=== PATIENT | male | born 1935 | race Caucasian/White ===

== ENCOUNTER 2017-05-30 10:46 | Inpatient (IN) ==
--- NOTE | 2017-05-30 11:10 | Emergency Department Report ---
General Adult HPI - General Chief complaint: Medical Clearance Stated complaint: gen eval Time Seen by Provider: 05/30/17 10:48 Source: patient, family Mode of arrival: ambulatory Limitations: other (Dementia) - History of Present Illness HPI narrative: 74-year-old male with a history of Alzheimer's dementia has had a gradual increase in the decline of his cognitive abilities over the past 6 months. Patient appears to be paranoid at times. He goes outside and will easily become lost. He becomes verbally loud at night and aggressive. Patient does drink approximately a couple of beers on a daily basis. Patient has destroyed the screen door in a fit of anger. Patient has been withdrawing sums of money from the bank. He has been having more difficulty with daily activities over time. He denies any pain or discomfort. No other complaints or associated symptoms. Patient and family present to the emergency department for medical clearance for the patient to go to [facility]. Patient has been noncompliant with his medications for hypertension, dementia, hyperlipidemia, and gout for the past approximately 1-2 years. No other complaints or associated symptoms at this time. - Related Data Home Medications Medication Instructions Recorded Confirmed Allopurinol [Zyloprim] 300 mg PO DAILY 05/30/17 05/30/17 Amlodipine [Norvasc] 5 mg PO DAILY 05/30/17 05/30/17 Atorvastatin Calcium 20 mg PO DAILY 05/30/17 05/30/17 Divalproex [Depakote] 250 mg PO DAILY 05/30/17 05/30/17 Donepezil [Aricept] 10 mg PO DAILY 05/30/17 05/30/17 Memantine [Namenda] 5 mg PO QAM 05/30/17 05/30/17 Oxycodone/Acetaminophen 5/325 1 tab PO TID PRN 05/30/17 05/30/17 [Percocet 5/325] Allergies Allergy/AdvReac Type Severity Reaction Status Date / Time No Known Allergies Allergy Verified 05/30/17 10:55 Review of Systems Limitations: ROS unobtainable due to patient's medical condition [facility] Patient Stated Medical History Transient Ischemic Attacks ( Yes TIA) Hypertension Yes Other Musculoskeletal Yes: FX RT HAND Surgical History: Denied by patient. Family History: Reviewed and Noncontributory. - Social History Smoking status: Former smoker Substance use type: does not use Alcohol intake frequency: 0-2 drinks per day Physical Exam - Limitations Limitations: other - General General appearance: alert, in no apparent distress - Normal Exams: Head:: Normocephalic without trauma Eyes:: Pupils are PERRLA w/ EOMI, No scleral icterus, irritation, or foreign bodies noted ENMT:: No facial trauma, nasal exudates, pharyngeal erythema, or exudates are noted Dental: No fractured, loose, or missing teeth noted Neck:: Full range of motion, without adenopathy, JVD, bruits or thyromegaly Chest/Respirations:: Clear all alfred, with good airflow, and symmetry bilaterally Cardiovascular:: Regular rate and rhythm, without murmur or gallop, Pulses 2+ all extremities, capillary refill, <2 seconds all extremities Abdomen:: Bowel sounds positive, soft, non-tender, non-distended, no hepatosplenomegaly, masses or bruits noted Lymphatic:: No lymphadenopathy, or lymphedema noted Musculoskeletal:: No tenderness, or deformity noted, good range of motion, all extremities Integumentary:: No rashes, hives, or bruising noted, hair and nails, without abnormality Neurological:: Patient is alert (Alert and oriented x 1-2 at baseline. No focal deficit.) Course Vital Signs Temperature 97.6 F 05/30/17 10:55 Pulse Rate 64 05/30/17 10:55 Respiratory Rate 16 05/30/17 10:55 Blood Pressure 190/84 H 05/30/17 10:55 Pulse Oximetry 98 05/30/17 10:55 Temperature 97.6 F 05/30/17 10:55 Pulse Rate 64 05/30/17 12:00 Respiratory Rate 16 05/30/17 12:00 Blood Pressure 185/87 H 05/30/17 12:00 Pulse Oximetry 97 05/30/17 12:00 Medical Decision Making - [facility] Narrative Medical decision making narrative: Labs / imaging were reviewed in detail with the patient and family and questions are answered. Patient is given thiamine 100 mg by mouth 1 in the emergency Department. Patient is medically clear for further evaluation and treatment in a psychiatric facility. Patient is accepted to [facility] by Dr. Briones who is in agreement with the current plan of management. No further orders from accepting physician who is in agreement with the current plan of management. Patient and family are in agreement with the current plan of management. Patient to [facility] at this time for further evaluation and treatment. - Differential Diagnosis dementia, metabolic disorder, UTI, alcohol abuse - Lab Data Result diagrams: 05/30/17 11:35 05/30/17 11:35 Lab Results 05/30/17 05/30/17 05/30/17 Range/Units 11:25 11:35 11:35 WBC 4.5 (4.5-11.0) T/MM3 RBC 4.81 (4.50-5.90) M/MM3 Hgb 15.0 (13.5-17.5) GM/DL Hct 44.8 (41-53) % MCV 93.1 (80-100) UM3 MCH 31.2 (26-34) UUG MCHC 33.5 (31-37) GM/DL RDW Std Deviation 44.1 (36.9-50.2) FL Plt Count 156 (130-400) T/MM3 MPV 9.9 (9.4-12.4) UM3 Immature Gran % (Auto) 0.2 (0.0-0.5) % Neut % (Auto) 65.4 (33-66) % Lymph % (Auto) 24.3 (23-45) % Reynolds % (Auto) 8.4 (0-9.0) % Eos % (Auto) 1.5 (0-4) % Baso % (Auto) 0.2 (0-2) % Neut # (Auto) 3.0 (1.8-7.7) T/MM3 Lymph # (Auto) 1.1 (1-4.8) T/MM3 Reynolds # (Auto) 0.4 (0-0.8) T/MM3 Eos # (Auto) 0.1 (0-0.5) T/MM3 Baso # (Auto) 0.0 (0-0.2) T/MM3 Abs Immat Gran (auto) 0.01 (0.00-0.03) T/MM3 Turbidity < 20 (0-20) Sodium 141 (134-144) MEQ/L Potassium 4.1 (3.6-5) MEQ/L Chloride 103 (98-107) MEQ/L Carbon Dioxide 28 (22-30) MEQ/L Anion Gap 10 (5-15) MEQ/L BUN 14.0 (9-20) MG/DL Creatinine 1.3 (0.8-1.5) mg/dL GFR Calculation 53 BUN/Creatinine Ratio 11 (6-26) RATIO Glucose 97 (75-110) MG/DL Calculated Osmolality 272 (261-280) MOSM/KG Calcium 9.0 (8.4-10.2) MG/DL Total Bilirubin 0.80 (0.20-1.30) MG/DL Icterus Index < 2 (0-7) AST 22 (17-59) U/L ALT 9 (1-50) U/L Alkaline Phosphatase 88 (38-126) U/L Troponin I 0.035 (0-0.12) ng/ml Total Protein 7.3 (6.3-8.2) g/dL Albumin 3.8 (3.5-5.0) g/dL Globulin 3.5 (2.4-3.6) G/DL Albumin/Globulin Ratio 1.1 (1.1-2.2) RATIO Specimen Hemolysis < 15 (0-25) Ur Collection Type Urine, void-cc/notcc Urine Color Yellow (YELLOW) Urine Clarity Clear Urine pH 6.0 (5.0-8.0) Ur Specific Wolsey 1.010 L (1.015-1.025) Urine Protein Negative (NEGATIVE) Urine Glucose (UA) Negative (NEGATIVE) Urine Ketones Negative (NEGATIVE) Urine Occult Blood Trace-intact (NEGATIVE) Urine Nitrate Negative (NEGATIVE) Urine Bilirubin Negative (NEGATIVE) Urine Urobilinogen 0.2 (NORMAL) EU/DL Ur Leukocyte Esterase Negative (NEGATIVE) Urinalysis Comment Microscopic not ind. - Radiology Data CXR - No acute processes. - EKG Data EKG #1 EKG results narrative: Sinus rhythm. 66 bpm. No STEMI. Disposition Clinical Impression: Dementia Qualifiers: Dementia type: Alzheimer's disease Alzheimer's disease onset: unspecified onset Dementia behavioral disturbance: with behavioral disturbance Qualified Code(s): G30.9 - Alzheimer's disease, unspecified; F02.81 - Dementia in other diseases classified elsewhere with behavioral disturbance Disposition: 64 To [facility] Condition: Improved Time of Disposition: 12:20 (Admit. Dr. Briones. ) - Seen By: physician
--- NOTE | 2017-05-30 12:15 | XRay Report ---
Indication: med. clearance PROCEDURE: XR chest 1V: Encounter: Initial Comparison: None FINDINGS: The lungs are clear. There is no abnormal airspace opacity, pleural effusion or pneumothorax identified. The heart size is at the upper limits of normal. The pulmonary vasculature and mediastinum are within normal limits. No significant skeletal abnormality is seen. IMPRESSION: No acute cardiopulmonary abnormality. .
[2017-05-30] MEDS ORDERED: OXAZEPAM 30 MG CAPSULE PO PRN (12:55)
[2017-05-30] MEDS ORDERED: LORazepam 0.5 MG TABLET PO PRN (12:55)
[2017-05-30] MEDS ORDERED: Oxycodone/Acetaminophen 5/325 1 TAB PO PRN (12:55)
[2017-05-30] MEDS ORDERED: HALOPERIDOL 0.5 MG TABLET PO PRN (12:55)
[2017-05-30 13:06] VITALS: BMI 29.2
[2017-05-30] MEDS: HALOPERIDOL 1 MG/0.5 ML ORAL LIQUID PO PRN ×2 (13:30→20:02)
[2017-05-30] MEDS ORDERED: RISPERIDONE 1 MG/ML PO ONE (14:11)
--- NOTE | 2017-05-30 14:26 | History & Physical Report ---
History of Present Illness Date: 05/30/17 Chief complaint: increasing confusion, behaviors HPI: Patient is an 82 yo male who is admitted [facility] due to increasing behaviors and confusion. He lives at home with his who has MS. His son, Bill (lives in [place]), has brought him here and he gives most of patient 's history. Patient is angry that he is here. Feels he is being held prisoner. Son reports that pt drinks approx 6 beers a day. Last drink was yesterday, but unsure what time. Has probably been drinking this much for a couple of years. 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 Sxs of Alzheimers have been evident for the past few years. It is clear to family that he can't go back home after [facility] admission. Patient was seen in his room while his son was present. He mentions that he is upset that he cannot leave here and, at the present time, doesn't feel it is necessary to be examined for his stay here. 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 1 family member w/ early onset age 40's. No FH of DM or CV disease. 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 Ley ([place], [place]) Patient has 2 children - son and daughter Medications Home Medications Medication Instructions Recorded Confirmed Type Allopurinol [Zyloprim] 300 mg PO DAILY 05/30/17 05/30/17 History Amlodipine [Norvasc] 5 mg PO DAILY 05/30/17 05/30/17 History Atorvastatin Calcium 20 mg PO DAILY 05/30/17 05/30/17 History Divalproex [Depakote] 250 mg PO DAILY 05/30/17 05/30/17 History Donepezil [Aricept] 10 mg PO DAILY 05/30/17 05/30/17 History Memantine [Namenda] 5 mg PO QAM 05/30/17 05/30/17 History Oxycodone/Acetaminophen 5/325 1 tab PO TID PRN 05/30/17 05/30/17 History [Percocet 5/325] Allergies Allergy/AdvReac Type Severity Reaction Status Date / Time No Known Allergies Allergy Verified 05/30/17 10:55 Exam Vital Signs: Temperature 97.6 F 05/30/17 10:55 Pulse Rate 64 05/30/17 12:00 Respiratory Rate 16 05/30/17 12:00 Blood Pressure 185/87 H 05/30/17 12:00 Pulse Oximetry 97 05/30/17 12:00 Height/Weight/BMI: Height 1.73 m Weight 87.3 kg Body Mass Index 29.2 - Constitutional Present: no acute distress, well nourished, well developed - Routine HEENT Exam Head: Present: normocephalic, atraumatic Eye: Absent: conjunctival icterus, conjunctivae pink, periorbital ecchymosis ENT: Present: external ear normal - Routine Neck Exam Absent: swelling - Routine Respiratory Exam Absent: accessory muscle use, dyspnea, respiratory distress - Routine Extremities Exam Absent: cyanosis, pallor - Routine Skin Exam Present: intact. Absent: pallor - Routine Neurological Exam Present: alert, moving all extremities, normal speech. Absent: facial asymmetry , tremors - Routine Psychiatric Exam Present: agitated (voices being upset with being here) Results - Labs CBC & Chem 7: 05/30/17 11:35 05/30/17 11:35 - Imaging and Cardiology CT scan - head Additional comments: 05/01/17 [facility] 1. Focal area of decreased attenuation in L temporal lobe anteriorly. 2. Atrophy and moderately severe chronic microvascular ischemic disease. 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 Birones, and to provide safe environment. Will need to watch for etoh w/drawal. Thiamine, folate, MVI, Serax and ativan have all been ordered. Labs from ER screen reviewed and are normal. B12, folate, TSH, lipids and A1C pending. Care to return to Dr. Ley on dismissal. Thank you for the consult. - Physician Narrative Physician: Riut Moctezuma MD Narrative: Date: 05/30/17 Time: 1944 I have independently evaluated and examined this patient. 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 We discussed and formulated the assessment and plan as above with additions as below: Mr. Mancera was very talkative when seen this evening; he repetitively told me about being born in [place] and subsequently moving to [place], [place]. 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 He denied any medical concerns other than stiffness and digits of his right hand which he attributes to recent fractures after a fall several weeks or months ago. He otherwise hoped I could clarify when his right would be here and how it was getting home. 120/65 NAD, pleasantly confused, very talkative EOMI, upper eyelid slightly droopy bilaterally, conjunctiva slightly injected, sclera anicteric, conjugate gaze, oropharynx clear, neck supple Respirations nonlabored, breath sounds clear anteriorly, good airflow Regular rhythm, heart tones cannot be appreciated over persistent speech Abdomen obese, soft, nontender Extremities +2 pitting edema to the mid thigh MAEW, normal motor tone, no tremors, assistant controller 4/5-incomplete flexion right index/ ring digits. Patient is able to raise each leg off the floor and hold it up against gentle resistance. No drift of the upper extremities. Sensation intact to light touch 4 extremities. Mild soft tissue swelling in the PIP/DIPs of the right index and ring fingers. Patient ambulates slowly with slightly forward leaning posture but was stable ambulating. Laboratory data reviewed CBC, compressive metabolic panel, TSH, and UA all unremarkable Chest x-ray reviewed by myself-lung alfred clear, NAD EKG also reviewed by myself-sinus rhythm, LAD, diffuse T-wave flattening, borderline low voltage-primarily in the limb leads, slow R-wave progression Medically the patient appears to be stable at this time, thank for allowing us to participate in his care. Home medications resumed for hypertension and hyperlipidemia. Will monitor course with you. Hospital Course Summary Disclaimer: The visit summary below is not to be considered part of the above Progress Note.
[2017-05-30] MEDS: LORazepam INTENSOL 1mg/0.5ml ORAL LIQUID PO PRN ×2 (16:40→21:41)
[2017-05-31] MEDS: HALOPERIDOL 5 MG/ML INJECTION IM PRN ×2 (05:45→23:35)
[2017-05-31] MEDS: LORazepam INTENSOL 1mg/0.5ml ORAL LIQUID PO PRN ×2 (08:00→17:00)
[2017-05-31] MEDS: DIVALPROEX 250 MG TABLET PO SCH (11:52)
[2017-05-31] MEDS: AMLODIPINE 5 MG TABLET PO SCH (11:52)
[2017-05-31] MEDS: ALLOPURINOL 300 MG TABLET PO SCH (11:52)
[2017-05-31] MEDS: FOLIC ACID 1 MG TABLET PO SCH (11:52)
[2017-05-31] MEDS: MEMANTINE 5 MG TABLET PO SCH (11:52)
[2017-05-31] MEDS: MULTI-VITAMIN PLAIN TABLET PO SCH (11:53)
[2017-05-31] MEDS: RISPERIDONE 1 MG/ML PO SCH ×3 (12:33→20:04)
--- NOTE | 2017-05-31 13:35 | 24 Hour Neuropsychiatic Eval ---
Date of Admission: 05/30/17 12:37 Chief complaint: Agitation, paranoia reported by family History of Present Illness: Patient is an 82-year-old , retired male who was admitted to [facility] on 05/30/17 for psychiatric evaluation and stabilization. Patient was brought by his family due to increasing problematic behaviors and mood lability in the context of dementia, including paranoia and aggression. Patient reportedly refused to take all medications at home. He has reportedly been living on beer and cookies for some time. On interview, patient is pleasant and cooperative with me though he had PRN Ativan prior. He is oriented to self only. He cannot say why he is here other than "taking a break" and at times, talks about random/illogical things such as chasing animals out of holes. He reports that his mood is pretty good most of the time and denies feeling depressed. He denies any SI, HI or AVH. Patient is currently living home with and attends buddhism regularly. 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 Patient used tobacco in the past but does not currently. No prior psych hx per family. CT scan w/o contrast on 05/01/17: Focal area of decreased attenuation in L temporal lobe anteriorly, atrophy and moderately severe chronic microvascular ischemic disease. Family does not feel patient is safe to return home. I spoke with them at time of admission re: use of antipsychotics, including black box warning and they agreed to trial of antipsychotic, whether PO or IM required. Dementia: Memory Impairment, Poor Executive Functioning [facility] Patient Stated Medical History Transient Ischemic Attacks ( Yes TIA) Hypertension Yes Hx Benign Prostatic Yes Hyperplasia Other Musculoskeletal Yes: FX RT HAND Surgical History: none Family History: Several siblings have dementia. 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 Current residence: Apartment/Private Home Social history: Strengths: attends buddhism regularly, has supportive family, physically mobile Review of Systems ROS unobtainable: due to mental status - Psychiatric Psychiatric: Present: as per HPI Mental Status Exam Vitals: Last Vital Signs Temp 97.8 F 05/31/17 08:00 Pulse 65 05/31/17 08:00 Resp 16 05/31/17 08:00 BP 159/83 H 05/31/17 08:00 Pulse Ox 98 05/31/17 08:00 Height: 1.73 m Weight: 87.3 kg - Mental Status Exam Muscle Strength/Tone: Normal Dressing: Casual Grooming: Fair Attitude: Cooperative, Combative (at times, not during interview) Motor Activity: Retardation Eye Contact: Fair Speech: Slowed Volume: Normal Rhythm: Appropriate Rhythm Sensory: Alert Orientation: Disoriented to time, Disoriented to place, Disoriented to situation , Oriented to person Mood: Euthymic (during interview, labile affect on unit) Rate of Thoughts: Delayed Thought Organization: Disorganized, Confused Associations: Illogical Abstract Reasoning: Impaired, concrete Computation: Poor Computation Thought Content: Other (No abnormal thought content other than being out of context to conversation at times) Perception/Psychotic: Perception Normal (Has reportedly had paranoia per family) Language: Naming Impaired Fund of Knowledge: Poor fund of knowledge Memory: Poor-immediate, Poor-recent Suicidal Ideation: Denies Homicidal Ideation: Denies Insight: Impaired Judgement: Impaired Impulse Control: Poor - Laboratory Result Diagrams: 05/30/17 11:35 05/30/17 11:35 Assessment and Plan (1) Major neurocognitive disorder Problem details: Moderate, mixed etiology suspected (Alzheimer's & vascular), with behavioral disturbance Other medical conditions: L ankle arthritis BPH (Dr Miramontes) HTN Gout - ankle/foot HLD 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 Maintain safety and elopement precautions. Standard labs at time of admission: CBC, CMP, TSH, UA, Vitamin B12 and folate levels Have consulted hospitalist for optimization of medical comorbidities Have started alcohol withdrawal protocol Risperdal 1mg PO given on 05/30 and patient responded well but is refusing most medications Will schedule 0.5mg PO liquid Risperdal daily and 1mg PO at 1800 Monitor mood, behavior and response to treatment Patient will require placement once psychiatrically stable
[2017-05-31] MEDS: ATORVASTATIN 20 MG TABLET PO SCH (20:04)
[2017-05-31] MEDS: DONEPEZIL 10 MG TABLET PO SCH (20:05)
[2017-05-31] MEDS ORDERED: HALOPERIDOL 5 MG/ML INJECTION IM PRN (20:12)
[2017-05-31] MEDS ORDERED: HYDROCODONE/APAP 5mg/325mg TABLET PO PRN (23:24)
[2017-06-01] MEDS: LORazepam INTENSOL 1mg/0.5ml ORAL LIQUID PO PRN ×2 (02:15→19:45)
[2017-06-01] MEDS ORDERED: Oxycodone/Acetaminophen 5/325 1 TAB PO PRN (02:18)
[2017-06-01] MEDS: RISPERIDONE 1 MG/ML PO SCH ×2 (10:17→19:45)
[2017-06-01] MEDS: MULTI-VITAMIN PLAIN TABLET PO SCH (10:17)
[2017-06-01] MEDS: ALLOPURINOL 300 MG TABLET PO SCH (10:18)
[2017-06-01] MEDS: MEMANTINE 5 MG TABLET PO SCH (10:18)
[2017-06-01] MEDS: DIVALPROEX 250 MG TABLET PO SCH (10:18)
[2017-06-01] MEDS: AMLODIPINE 5 MG TABLET PO SCH (10:18)
[2017-06-01] MEDS: FOLIC ACID 1 MG TABLET PO SCH (10:18)
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
[2017-06-01] MEDS ORDERED: MORPHINE SULFATE 4mg INJECTION IVP PRN (11:50)
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
[2017-06-01] MEDS: MORPHINE SULFATE 4mg INJECTION IM PRN ×2 (14:02→20:30)
[2017-06-01] MEDS: ATORVASTATIN 20 MG TABLET PO SCH (22:11)
[2017-06-01] MEDS: DONEPEZIL 10 MG TABLET PO SCH (22:12)
[2017-06-02] MEDS: CYANOCOBALAMIN (B-12) 1,000mcg/ml INJECTION IM SCH ×2 (02:19→18:18)
[2017-06-02] MEDS: MORPHINE SULFATE 4mg INJECTION IM PRN ×4 (02:21→23:54)
[2017-06-02] MEDS: LORazepam INTENSOL 1mg/0.5ml ORAL LIQUID PO PRN (02:47)
[2017-06-02] MEDS: HALOPERIDOL 1 MG/0.5 ML ORAL LIQUID PO PRN (03:57)
[2017-06-02] MEDS: OXYCODONE/APAP 7.5 MG/325 MG TABLET PO PRN ×3 (04:09→20:06)
[2017-06-02] MEDS: RISPERIDONE 1 MG/ML PO SCH ×2 (08:54→17:27)
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
[2017-06-02] MEDS: MEMANTINE 5 MG TABLET PO SCH (11:21)
[2017-06-02] MEDS: MULTI-VITAMIN PLAIN TABLET PO SCH (11:21)
[2017-06-02] MEDS: DIVALPROEX 250 MG TABLET PO SCH (11:21)
[2017-06-02] MEDS: ALLOPURINOL 300 MG TABLET PO SCH (11:21)
[2017-06-02] MEDS: FOLIC ACID 1 MG TABLET PO SCH (11:21)
[2017-06-02] MEDS: AMLODIPINE 5 MG TABLET PO SCH (11:21)
[2017-06-02] MEDS: DONEPEZIL 10 MG TABLET PO SCH (20:05)
[2017-06-02] MEDS: ATORVASTATIN 20 MG TABLET PO SCH (20:05)
[2017-06-03] MEDS: OXYCODONE/APAP 7.5 MG/325 MG TABLET PO PRN ×4 (05:30→20:49)
[2017-06-03] MEDS: MORPHINE SULFATE 4mg INJECTION IM PRN ×3 (07:49→18:31)
[2017-06-03] MEDS: MULTI-VITAMIN PLAIN TABLET PO SCH (10:30)
[2017-06-03] MEDS: ALLOPURINOL 300 MG TABLET PO SCH (10:30)
[2017-06-03] MEDS: MEMANTINE 5 MG TABLET PO SCH (10:30)
[2017-06-03] MEDS: DIVALPROEX 250 MG TABLET PO SCH (10:30)
[2017-06-03] MEDS: FOLIC ACID 1 MG TABLET PO SCH (10:38)
[2017-06-03] MEDS: AMLODIPINE 5 MG TABLET PO SCH (10:38)
[2017-06-03] MEDS: CYANOCOBALAMIN (B-12) 1,000mcg/ml INJECTION IM SCH (10:39)
[2017-06-03] MEDS: RISPERIDONE 1 MG/ML PO SCH ×2 (11:00→17:18)
[2017-06-03] MEDS ORDERED: BISACODYL 10 MG SUPPOSITORY RECTALLY PRN (18:06)
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
[2017-06-03] MEDS: DONEPEZIL 10 MG TABLET PO SCH (20:44)
[2017-06-03] MEDS: ATORVASTATIN 20 MG TABLET PO SCH (20:44)
[2017-06-04] MEDS: MORPHINE SULFATE 4mg INJECTION IM PRN ×3 (01:41→22:34)
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
[2017-06-04] MEDS: ALLOPURINOL 300 MG TABLET PO SCH (12:14)
[2017-06-04] MEDS: AMLODIPINE 5 MG TABLET PO SCH (12:14)
[2017-06-04] MEDS: MEMANTINE 5 MG TABLET PO SCH (12:19)
[2017-06-04] MEDS: DIVALPROEX 250 MG TABLET PO SCH (12:19)
[2017-06-04] MEDS: MULTI-VITAMIN PLAIN TABLET PO SCH (12:19)
[2017-06-04] MEDS: FOLIC ACID 1 MG TABLET PO SCH (12:19)
[2017-06-04] MEDS: CYANOCOBALAMIN (B-12) 1,000mcg/ml INJECTION IM SCH (12:23)
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
[2017-06-04] MEDS: OXYCODONE/APAP 7.5 MG/325 MG TABLET PO PRN (15:59)
[2017-06-04] MEDS: RISPERIDONE 1 MG/ML PO SCH (22:34)
[2017-06-04] MEDS: ATORVASTATIN 20 MG TABLET PO SCH (22:38)
[2017-06-04] MEDS: DONEPEZIL 5 MG TABLET PO SCH (22:39)
[2017-06-05] MEDS: OXYCODONE/APAP 7.5 MG/325 MG TABLET PO PRN ×4 (01:52→17:01)
[2017-06-05] MEDS: RISPERIDONE 1 MG/ML PO SCH ×2 (08:24→17:08)
[2017-06-05] MEDS: CYANOCOBALAMIN (B-12) 1,000mcg/ml INJECTION IM SCH (08:25)
[2017-06-05] MEDS: AMLODIPINE 5 MG TABLET PO SCH (08:37)
--- NOTE | 2017-06-05 09:49 | XRay Report ---
Indication: s/p fall after initial fracture PROCEDURE: XR humerus LT: Encounter: Subsequent Comparison: May 31, 2017 Findings: Impacted fracture of the humeral head and surgical neck is again seen with slight increase in anterior displacement compared to the prior study and slight worsening in impaction. No new fracture or dislocation. Impression: Slight increase in displacement of the left proximal humeral fracture. .
[2017-06-05] MEDS: DIVALPROEX 250 MG TABLET PO SCH (11:14)
[2017-06-05] MEDS: MULTI-VITAMIN PLAIN TABLET PO SCH (11:15)
[2017-06-05] MEDS: MEMANTINE 5 MG TABLET PO SCH (11:15)
[2017-06-05] MEDS: FOLIC ACID 1 MG TABLET PO SCH (11:15)
[2017-06-05] MEDS: ALLOPURINOL 300 MG TABLET PO SCH (11:16)
[2017-06-05] MEDS: MORPHINE SULFATE 4mg INJECTION IM PRN ×2 (13:36→21:25)
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
[2017-06-05] MEDS ORDERED: MORPHINE SULFATE 4mg INJECTION IM SCH ×2 (17:15→20:00)
[2017-06-05] MEDS ORDERED: OXYCODONE/APAP 7.5 MG/325 MG TABLET PO SCH (19:00)
[2017-06-05] MEDS: ATORVASTATIN 20 MG TABLET PO SCH (21:45)
[2017-06-05] MEDS: DONEPEZIL 5 MG TABLET PO SCH (21:45)
[2017-06-06] MEDS: OXYCODONE/APAP 7.5 MG/325 MG TABLET PO SCH ×5 (00:18→21:10)
[2017-06-06] MEDS: MORPHINE SULFATE 4mg INJECTION IM PRN ×3 (08:12→22:46)
[2017-06-06] MEDS: DIVALPROEX 250 MG TABLET PO SCH (10:27)
[2017-06-06] MEDS: ALLOPURINOL 300 MG TABLET PO SCH (10:27)
[2017-06-06] MEDS: AMLODIPINE 5 MG TABLET PO SCH (10:27)
[2017-06-06] MEDS: MEMANTINE 5 MG TABLET PO SCH (10:28)
[2017-06-06] MEDS: MULTI-VITAMIN PLAIN TABLET PO SCH (10:28)
[2017-06-06] MEDS: FOLIC ACID 1 MG TABLET PO SCH (10:28)
[2017-06-06] MEDS: RISPERIDONE 1 MG/ML PO SCH ×2 (10:28→17:44)
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
[2017-06-06] MEDS: CYANOCOBALAMIN (B-12) 1,000mcg/ml INJECTION IM SCH (16:57)
[2017-06-06] MEDS: LORazepam INTENSOL 1mg/0.5ml ORAL LIQUID PO PRN (22:49)
[2017-06-07] MEDS: OXYCODONE/APAP 7.5 MG/325 MG TABLET PO SCH ×3 (03:10→14:09)
[2017-06-07] MEDS: LORazepam INTENSOL 1mg/0.5ml ORAL LIQUID PO PRN (03:23)
[2017-06-07] MEDS: FOLIC ACID 1 MG TABLET PO SCH (10:02)
[2017-06-07] MEDS: AMLODIPINE 5 MG TABLET PO SCH (10:02)
[2017-06-07] MEDS: ALLOPURINOL 300 MG TABLET PO SCH (10:02)
[2017-06-07] MEDS: MULTI-VITAMIN PLAIN TABLET PO SCH (10:02)
[2017-06-07] MEDS: RISPERIDONE 1 MG/ML PO SCH ×2 (10:03→10:15)
[2017-06-07] MEDS: CYANOCOBALAMIN (B-12) 1,000mcg/ml INJECTION IM SCH (10:13)
[2017-06-07] MEDS: MORPHINE SULFATE 4mg INJECTION IM PRN ×2 (10:14→15:37)
[2017-06-07 10:29] VITALS: BP 145/80; PULSE 115; RESP 16; TEMP 98.6; O2SAT 93
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
[2017-06-15] MEDS ORDERED: CYANOCOBALAMIN (B-12) 500mcg TABLET PO SCH (09:00)
== END 2017-06-07 15:25 | disposition hospice, home (50) | DRG 884 ==
LOC: EDBD 10:46 → ED 10:46 → GEN 12:37
PROVIDERS: ADMIT Psychiatry & Neurology Psychiatry; ATTEND Psychiatry & Neurology Psychiatry